=== PATIENT | male | born 1965 | race Caucasian/White ===

== ENCOUNTER 2021-06-29 22:37 | Emergency (ER) | payer OTHER ==
[~2021-06-29] VITALS: Ht 177.8 cm; Wt 68.0 kg
[2021-06-29 22:56] VITALS: BP 145/76
[2021-06-30] MEDS ORDERED: IBU600T PO (00:47)
[2021-06-30] MEDS ORDERED: HYDROcodone-ACET 10/325MG TAB PO ONE (01:00)
[2021-06-30] MEDS ORDERED: IBUPROFEN 800 MG TAB PO ONE ×2 (01:10→01:15)
== END 2021-06-30 01:34 | disposition home or self-care (01) ==
LOC: ER 22:37
DX: S62.662A Nondisplaced fracture of distal phalanx of right middle finger, initial encounter for closed fracture (principal); S62.644A Nondisplaced fracture of proximal phalanx of right ring finger, initial encounter for closed fracture; E11.9 Type 2 diabetes mellitus without complications; W22.8XXA Striking against or struck by other objects, initial encounter; Y93.89 Activity, other specified; Y92.89 Other specified places as the place of occurrence of the external cause; Y99.0 Civilian activity done for income or pay
CPT/HCPCS: 29130; 73130

== ENCOUNTER 2024-02-01 01:07 | Emergency (ER) | payer OTHER ==
[~2024-02-01] VITALS: Ht 177.8 cm; Wt 67.2 kg
[~2024-02-01 01:07] MED LIST: IBU600T PO
[2024-02-01] MEDS ORDERED: IBUP-1456 PO (01:54)
[2024-02-01] MEDS ORDERED: CYCL-837 PO (01:54)
--- NOTE | 2024-02-01 01:55 | ED.PDOC ---
Musculoskeletal HPI Comments 58-year-old male presents to ER with complaints of right shoulder pain x2 weeks. Patient reports that he does a lot of heavy lifting at work and x2 weeks has been experiencing right shoulder pain. Denies any trauma/falls. Rates his current pain a 5/10 to right shoulder with radiation towards right side of neck. Notes he has been taking ibuprofen for his pain with slight relief. Patient presents to ER ambulatory on arrival, with steady gait, in no distress. Denies numbness/tingling, skin changes, shortness of breath, chest pain or any further symptoms/complaints Chief Complaint: Upper Extremity Time Seen by MD: 01:28 Primary Care Provider: UNKNOWN Reviewed Notes: Nurses Notes, Medications, Allergies Allergies: Coded Allergies: NO KNOWN ALLERGIES (Unverified , 06/29/21) Home Meds Active Scripts Cyclobenzaprine Hcl (Cyclobenzaprine Hcl) 5 Mg Tab, 1 TAB PO QHSP, #14 TAB 0 Refills Prov:JEANNE RONQUILLO 02/01/24 Ibuprofen (Ibuprofen) 800 Mg Tab, 1 TAB PO TID PRN, #30 TAB 0 Refills Prov:JEANNE RONQUILLO 02/01/24 Ibuprofen Micronized (MOTRIN TABLET) 600 Mg Tb, 600 MG PO TID PRN for 7 Days, #21 TAB *Black box warning-NSAIDS can increase risk of [place] & hypertension, GI irritation, ulceration, bleed, perferation. Do not use post cardiac surgery. Use short duration/lowest effective dose. Prov:VESTA HIGGINS MD 06/30/21 Information Source: Patient Mode of Arrival: Ambulatory Past Medical History PAST MEDICAL HISTORY: DM Surgical History: Denies all surgeries Family History Family History: Unknown Social History Smoker: Non-Smoker Alcohol: Denies ETOH Use Drugs: Denies Drug Use Lives In: Home Constitutional: denies: chills, diaphoresis, fatigue, fever, malaise, sweats, weakness, others EENTM: denies: blurred vision, double vision, ear bleeding, ear discharge, ear drainage, ear pain, ear ringing, eye pain, eye redness, hearing loss, mouth pain, mouth swelling, nasal discharge, nose bleeding, nose congestion, nose pain, photophobia, tearing, throat pain, throat swelling, voice changes, others Respiratory: denies: cough, hemoptysis, orthopnea, SOB at rest, shortness of breath, SOB with excertion, stridor, wheezing, others Cardiovascular: denies: chest pain, dizzy spells, diaphoresis, Dyspnea on e xertion, edema, irregular heart beat, left arm pain, lightheadedness, palpitations, PND, syncope, others Gastrointestinal: denies: abdomen distended, abdominal pain, blood streaked bowels, constipated, diarrhea, dysphagia, difficulty swallowing, hematemesis, melena, nausea, poor appetite, poor fluid intake, rectal bleeding, rectal pain, vomiting, others Genitourinary: denies: burning, dysuria, flank pain, frequency, hematuria, incontinence, penile discharge, penile sore, pain, testicle pain, testicle swelling, urgency, others Neurological: denies: dizziness, fainting, headache, left sided numbness, left sided weakness, numbness, paresthesia, pre-existing deficit, right sided numbness, right sided weakness, seizure, speech problems, tingling, tremors, weakness, others Musculoskeletal: reports: others (As stated in HPI) Integumetry: denies: bruises, change in color, change in hair/nails, dryness, laceration, lesions, lumps, rash, wounds, others Allergic/Immunocompromised: denies: Difficulty Healing, Frequent Infections, Hives, Itching, others Hematologic/Lymphatic: denies: anemia, blood clots, easy bleeding, easy bruising, swollen glands, others Endocrine: denies: excessive hunger, excessive sweating, excessive thirst, excessive urination, flushing, intolerance to cold, intolerance to heat, unexplained weight gain, unexplained weight loss, others Psychiatric: denies: anxiety, bipolar disorder, depression, hopeless, panic di sorder, schizophrenia, sleepless, suicidal, others Physical Exam General Appearance: No Apparent Distress HEENT: PERRL/EOMI Neck: Full Range of Motion, Other (Slight TTP to right cervical paraspinals noted. No skin changes noted) Respiratory: Chest Non-Tender, Lungs Clear, No Accessory Muscle Use, No Respiratory Distress, Normal Breath Sounds Cardiovascular: No Murmur, No Gallop, Regular Rate/Rhythm Breast Exam: Deferred Gastrointestinal: NOT DONE Genitalia: Deferred Pelvic: Deferred Rectal: Deferred Extremities: Normal capillary refill, Normal range of motion Musculoskeletal : Extremity Location: Shoulder (TTP to right GH joint noted. No deformity/skin changes noted. Negative Apley scratch test right shoulder. Pulses intact) Neurologic: Alert, spinner iron II-XII nml as Tested, No Motor Deficits, Normal Affect, Normal Mood, No Sensory Deficits Cerebellar Function: Normal Reflexes: Normal Skin: Dry, Normal Color, Warm Peripheral Pulses: 2+ carotid (R), 2+ carotid (L), 2+ Radial (R), 2+ Radial (L), 2+ Brachial (R), 2+ Brachial (L) Lymphatic: No Adenopathy Was a procedure done? Was a procedure done?: No Sedation Sedation?: No Differential Diagnosis EXT Differential Diagnosis: Fracture, Dislocation, Neurovascular injury X-Ray, Labs, Meds, VS Vital Signs Date Time Temp Pulse Resp B/P (MAP) Pulse Ox O2 Delivery O2 Flow Rate FiO2 02/01/24 01:30 98.0 98 18 157/82 (107) 96 Current Medications Medications (Trade) Dose Ordered Sig/Mara Route Start Time Stop Time Status Last Admin Ketorolac Tromethamine (Toradol Injection) 60 mg ONCE ONCE IM 02/01/24 01:45 02/01/24 01:46 DC 02/01/24 02:46 PATIENT: KATHY PERES ACCT: [id number] UNIT: [id number] : 1965 LOC: ER ROOM / BED: / AGE / SEX: 58 / M ADM STATUS: REG ER SERVICE 0140 ORDERING PHYSICIAN: JEANNE RONQUILLO PROCEDURE(s): RSHD2 - R SHOULDER 2+ VIEW XRAY REASON: right shoulder pain ORDER NUMBER(s): [id number], ACCESSION NUMBER(s): [id number] Examination: RSHD2 Clinical Indication: right shoulder pain. Comparison: None. Technique: Two views of the right shoulder. Findings: There is no evidence of acute fracture, dislocation or osseous lesion. Acromioclavicular joint space is preserved. Glenohumeral joint space is preserved. Adjacent soft tissues appear unremarkable with no evidence of joint effusion. Impression: No acute osseous, articular or soft tissue abnormality by plain radiography. Electronically Signed 02/01/2024 02:56 Sofy Beasley ATED BY: CLARISA PADILLA MD DICTATED DATE/TIME: 02/01/24255 SIGNED BY: CLARISA PADILLA MD SIGNED DATE/TIME: 02/01/24255 CC: Right shoulder x-ray reviewed Toradol 60 mg IM ordered Workman's comp paperwork filled out Advised to follow up PCP and workman's comp PCP in 1-2 days Patient verbalized understanding and agreeable with current plan of care Advised to return to ER immediately if symptoms worsen Time of 1ST Reevaluation: 01:20 Reevaluation 1ST: N/A Patient Education/Counseling: Diagnosis, Treatment, Prognosis, Need For Follow Up Family Education/Counseling: No Family Present Departure 1 Departure Time of Disposition: 01:42 Impression: Primary Impression: Right shoulder strain Qualified Codes: S46.911A - Strain of unspecified muscle, fascia and tendon at shoulder and upper arm level, right arm, initial encounter Additional Impression: Cervical strain Qualified Codes: S16.1XXA - Strain of muscle, fascia and tendon at neck level, initial encounter Disposition: 01 HOME / SELF CARE / HOMELESS Condition: Stable e-Prescriptions Cyclobenzaprine Hcl (Cyclobenzaprine Hcl) 5 Mg Tab 1 TAB PO QHSP, #14 TAB 0 Refills Prov: JEANNE RONQUILLO 02/01/24 Ibuprofen (Ibuprofen) 800 Mg Tab 1 TAB PO TID PRN, #30 TAB 0 Refills Prov: JEANNE RONQUILLO 02/01/24 Discharged With: Self Critical Care Note Critical Care Time?: No Stability Stability form required: No Heart Score Heart Score: Heart Score Response (Comments) Value History N/A 0 EKG N/A 0 Age N/A 0 Risk Factors N/A 0 Troponin N/A 0 Total 0 JEANNE RONQUILLO Feb 01, 2024 01:54
[2024-02-01] MEDS: KETOROLAC TROMETH 60MG/2ML VIAL IM ONE (02:46)
--- NOTE | 2024-02-01 02:57 | DVH ---
Examination: RSHD2 Clinical Indication: right shoulder pain. Comparison: None. Technique: Two views of the right shoulder. Findings: There is no evidence of acute fracture, dislocation or osseous lesion. Acromioclavicular joint space is preserved. Glenohumeral joint space is preserved. Adjacent soft tissues appear unremarkable with no evidence of joint effusion. Impression: No acute osseous, articular or soft tissue abnormality by plain radiography. Electronically Signed 02/01/2024 02:56 Sofy Beasley
[2024-02-01 03:26] VITALS: BP 139/75; PULSE 83; RESP 16; TEMP 97.9
[2024-02-01 03:30] VITALS: O2SAT 98
== END 2024-02-01 03:37 | disposition home or self-care (01) ==
LOC: ER 01:07
DX: S46.911A Strain of unspecified muscle, fascia and tendon at shoulder and upper arm level, right arm, initial encounter (principal); S16.1XXA Strain of muscle, fascia and tendon at neck level, initial encounter; E11.9 Type 2 diabetes mellitus without complications; X50.0XXA Overexertion from strenuous movement or load, initial encounter; Y93.89 Activity, other specified; Y92.89 Other specified places as the place of occurrence of the external cause; Y99.8 Other external cause status
CPT/HCPCS: 73030; 96372; 99283; J1885